=== PATIENT | female | born 1995 | race Hispanic/Latino ===

== ENCOUNTER 2022-02-17 02:37 | Emergency (ER) | payer SELFPAY ==
[2022-02-17] MEDS ORDERED: Acetaminophen 500 MG TAB ONE (03:57)
[2022-02-17] MEDS ORDERED: Oxymetazoline HCl 0.05% ( 15 ML ) ONE (04:12)
== END 2022-02-17 05:28 | disposition home or self-care (01) ==
LOC: CSHERS 02:37
DX: O99.891 Other specified diseases and conditions complicating pregnancy (principal); R51.9 Headache, unspecified; R09.81 Nasal congestion; Z3A.22 22 weeks gestation of pregnancy
CPT/HCPCS: 99283

== ENCOUNTER 2022-06-18 09:09 | Outpatient (CLI) | payer OTHER | END 2022-06-18 09:10 | disposition home or self-care (01) | LOC: CSHLAB 09:09 | PROVIDERS: ATTEND Family Medicine | DX: Z20.822 Contact with and (suspected) exposure to COVID-19 (principal) | CPT/HCPCS: 87811 ==

== ENCOUNTER 2022-06-21 09:49 | Inpatient (IN) | payer MEDICAID, OTHER, SELFPAY ==
[~2022-06-21 09:49] MED LIST: Bupivacaine 0.25% HCL 30 ML VIAL ONE; ePHEDrine Sulfate 50 MG/10 ML VIAL ONE
[2022-06-21 10:31] VITALS: BMI 25.8
[2022-06-21] MEDS ORDERED: hydrALAZINE 20 MG/ML VIAL SLOW IVP PRN ×2 (11:23→12:42)
[2022-06-21] MEDS ORDERED: Methylergonovine 0.2 MG/ML VIAL IM PRN (12:42)
[2022-06-21] MEDS ORDERED: Carboprost 250 MCG/ML AMP IM PRN (12:42)
[2022-06-21] MEDS ORDERED: Promethazine HCl 25 MG/ML VIAL IM PRN ×2 (12:42→17:57)
[2022-06-21] MEDS ORDERED: Misoprostol 200 MCG TAB PR PRN (12:42)
[2022-06-21] MEDS ORDERED: Ondansetron PF 4 MG/2 ML Vial IVP PRN ×2 (12:42→17:57)
[2022-06-21] MEDS ORDERED: Ibuprofen 800 MG TAB PO PRN (12:42)
[2022-06-21] MEDS ORDERED: Diphenoxylate HCl/Atropine Tablet PO PRN (12:42)
[2022-06-21] MEDS ORDERED: Lidocaine 1% (PF) 30 ML VIAL SC PRN (12:42)
[2022-06-21] MEDS ORDERED: Lactated Ringer's 1,000 ML IV SCH (12:45)
[2022-06-21] MEDS ORDERED: NS w/ Oxytocin 30 units 500 ML IV SCH ×2 (12:45)
[2022-06-21 13:14] LABS: Hemoglobin 12.7 g/dL (12.0-15.5); Mean Corpuscular HGB CONC 34.4 g/dL (32.0-36.0); Mean Corpuscular Hemoglobin 30.2 pg (27.0-33.0); Mean Corpuscular Volume 87.9 fl (81.6-98.3); Mean Platelet Volume 10.7 fl (7.4-10.4); Platelet Count 232 10x3/uL (150-450); RBC Distribution Width 14.8 % (11.5-14.5); White Blood Cell (WBC) Count 10.1 10x3/uL (3.5-10.5)
[2022-06-21 13:46] LABS: Hep B Surf Ag Non-Reactive S/CO (NonReactive); Syphilis Antibody Nonreactive (Nonreactive); Syphilis Antibody Index 0.08 S/CO (<1.00 Non-Reactive)
[2022-06-21 13:47] LABS: HBSAg Index 0.19 S/CO (0-0.99)
[2022-06-21] MEDS ORDERED: Fentanyl 2 mcg/Bup 0.1% Cadd 100 ML ONE (17:06)
[2022-06-21] MEDS ORDERED: Lactated Ringer's 500 ML IV PRN (17:57)
[2022-06-21] MEDS ORDERED: ePHEDrine Sulfate 50 MG/10 ML VIAL SLOW IVP PRN (17:57)
[2022-06-21] MEDS ORDERED: Naloxone HCl 0.4 mg/ml Vial IVP PRN ×2 (17:57)
[2022-06-21] MEDS ORDERED: Moisturizing Cream (Eucerin) 113 GM JAR TOP PRN (17:57)
[2022-06-21] MEDS ORDERED: diphenhydrAMINE 50 MG/ML VIAL IVP PRN (17:57)
[2022-06-21] MEDS ORDERED: Fentanyl 2 mcg/Bupivacaine 0.1% Cassette 100 ML EPIDURAL SCH (18:00)
[2022-06-21] MEDS ORDERED: Communication Order-Pharmacy FS SCH (18:00)
[2022-06-22] MEDS ORDERED: NS w/ Oxytocin 30 units 500 ML IV SCH (10:36)
[2022-06-22] MEDS ORDERED: Benzocaine-Menthol 82.5 ML CAN TOP PRN (10:36)
[2022-06-22] MEDS ORDERED: Bisacodyl 10 MG SUPP PR PRN (10:36)
[2022-06-22] MEDS ORDERED: Lanolin Ointment 7 GM TUBE TOP PRN (10:36)
[2022-06-22] MEDS ORDERED: Methylergonovine 0.2 MG/ML VIAL IM PRN (10:36)
[2022-06-22] MEDS ORDERED: hydrALAZINE 20 MG/ML VIAL SLOW IVP PRN (10:36)
[2022-06-22] MEDS ORDERED: Ondansetron PF 4 MG/2 ML Vial IVP PRN (10:36)
[2022-06-22] MEDS ORDERED: Misoprostol 200 MCG TAB VAG PRN (10:36)
[2022-06-22] MEDS ORDERED: Milk Of Magnesia 30 ML UDCUP PO PRN (10:36)
[2022-06-22] MEDS ORDERED: Boostrix 0.5 ML (Tdap) VIAL IM ONE (10:36)
[2022-06-22] MEDS: Prenatal Vitamin 1 TAB PO SCH (11:20)
[2022-06-22] MEDS: Docusate 100 MG CAP PO SCH ×2 (11:20→21:06)
[2022-06-22] MEDS: Ferrous Sulfate 325 MG TAB PO SCH ×2 (11:20→13:26)
[2022-06-22] MEDS ORDERED: Ibuprofen 800 MG TAB PO SCH (14:00)
[2022-06-22] MEDS: Acetaminophen 325 MG TAB PO PRN (16:05)
[2022-06-22] MEDS: Ibuprofen 800 MG TAB PO SCH (19:54)
[2022-06-23] MEDS: Acetaminophen 325 MG TAB PO PRN ×2 (03:18→08:40)
[2022-06-23] MEDS: Ibuprofen 800 MG TAB PO SCH ×2 (05:44→13:55)
[2022-06-23] MEDS: Ferrous Sulfate 325 MG TAB PO SCH (07:53)
[2022-06-23] MEDS: Docusate 100 MG CAP PO SCH (08:38)
[2022-06-23] MEDS: Prenatal Vitamin 1 TAB PO SCH (08:38)
[2022-06-23 11:56] VITALS: BP 109/55; TEMP 98.1
== END 2022-06-23 16:15 | disposition home or self-care (01) | DRG 807 ==
LOC: CSHLD/OP 09:49 → CSHLD 13:59 → CSHPP 06-22 11:03
PROVIDERS: ADMIT Obstetrics & Gynecology; ATTEND Obstetrics & Gynecology
PROC: 10E0XZZ Delivery of Products of Conception, External Approach (ICD-10-PCS; principal; 2022-06-22)
PROC: 0HQ9XZZ Repair Perineum Skin, External Approach (ICD-10-PCS; 2022-06-22)
PROC: 10907ZC Drainage of Amniotic Fluid, Therapeutic from Products of Conception, Via Natural or Artificial Opening (ICD-10-PCS; 2022-06-22)
PROC: 3E033VJ Introduction of Other Hormone into Peripheral Vein, Percutaneous Approach (ICD-10-PCS; 2022-06-22)
DX: O76 Abnormality in fetal heart rate and rhythm complicating labor and delivery (principal); Z37.0 Single live birth; Z3A.39 39 weeks gestation of pregnancy; Z90.49 Acquired absence of other specified parts of digestive tract; O70.0 First degree perineal laceration during delivery
CPT/HCPCS: 36415; 51702; 85027; 86780; 86850; 86900; 86901; 87340; 99285; J2590; S0020

== ENCOUNTER 2022-08-11 16:58 | Emergency (ER) | payer OTHER, SELFPAY ==
[2022-08-11 17:43] LABS: Bilirubin Neg (Negative); Blood, Urine 25 (Negative); Glucose, Urine (Dipstick) Normal (Negative); Ketone, Urine Negative (Negative); Leukocyte 500 (Negative); Nitrite Negative (Negative); Protein, Urine (Dipstick) 30 mg/dl (Neg-Trace); Urobilinogen Normal mg/dL (Less than 2); pH, Urine 6.5 (5.0-9.0)
[2022-08-11 18:00] LABS: Bacteria/HPF Rare-Few HPF (None Seen); RBC/HPF 0-3 HPF (0-3); Squamous Epithelial 0-3 HPF (0-3); WBC/HPF Greater Than 50 HPF (0-3)
[2022-08-11] MEDS ORDERED: cefTRIAXone\\ROCEPHIN 500 MG VIAL ONE (19:37)
[2022-08-11] MEDS ORDERED: Lidocaine 1% PF 5 ML VIAL ONE (19:37)
[2022-08-12 11:45] LABS: Chlamydia by PCR Not Detected (NotDetected); GC by PCR DETECTED (NotDetected)
== END 2022-08-11 23:37 | disposition home or self-care (01) ==
LOC: CSHERS 16:58
DX: N39.0 Urinary tract infection, site not specified (principal); N89.8 Other specified noninflammatory disorders of vagina
CPT/HCPCS: 81003; 81015; 87480; 87491; 87510; 87591; 87660; 96372; 99283; J0696

== ENCOUNTER 2024-06-07 06:55 | Inpatient (IN) | payer MEDICAID, OTHER ==
[2024-06-06 10:36] LABS: #Basophils 0.05 10x3/uL (0.0-0.2); #Eosinphils 0.18 10x3/uL (0.0-0.5); #Monocytes 0.64 10x3/uL (0.0-1.1); #Neutrophils 7.81 10x3/uL (1.5-8.4); %Basophils 0.5 % (0.0-2.0); %Eosinophils 1.6 % (0.0-6.0); %Monocytes 5.8 % (0.0-10.0); %Neutrophils 70.4 % (40.0-75.0); Hematocrit 37.1 % (34.9-44.5); Mean Corpuscular Hemoglobin 31.2 pg (27.0-33.0); Mean Platelet Volume 10.1 fL (7.4-10.4); Platelet Count 296 10x3/uL (150-450); RBC Distribution Width 13.7 % (11.5-14.5); Red Blood Cell (RBC) Count 4.17 10x6/uL (3.90-5.03); White Blood Cell (WBC) Count 11.1 10x3/uL (3.5-10.5)
[2024-06-06 11:20] LABS: HBsAg Index 0.16 S/CO (0-0.99); Hep B Surf Ag Non-Reactive S/CO (NonReactive)
[2024-06-06 11:21] LABS: Syphilis Antibody Nonreactive (Nonreactive); Syphilis Antibody Index 0.08 S/CO (<1.00 Non-Reactive)
[2024-06-07 07:49] VITALS: BMI 22.6
[2024-06-07] MEDS ORDERED: Bicitra 30 ML UDCUP PO PRN (08:11)
[2024-06-07] MEDS ORDERED: Ondansetron PF 4 MG/2 ML Vial IVP PRN ×4 (08:11→18:37)
[2024-06-07] MEDS ORDERED: Methylergonovine 0.2 MG/ML VIAL IM PRN ×2 (08:11→18:37)
[2024-06-07] MEDS ORDERED: Promethazine HCl 25 MG/ML VIAL IM PRN ×3 (08:11→18:37)
[2024-06-07] MEDS ORDERED: Carboprost 250 MCG/ML AMP IM PRN (08:11)
[2024-06-07] MEDS ORDERED: Misoprostol 200 MCG TAB PR PRN ×2 (08:11→18:37)
[2024-06-07] MEDS ORDERED: Diphenoxylate HCl/Atropine Tablet PO PRN (08:11)
[2024-06-07] MEDS ORDERED: hydrALAZINE 20 MG/ML VIAL SLOW IVP PRN ×2 (08:11→18:37)
[2024-06-07] MEDS ORDERED: Tranexamic Acid 1,000 MG/10 ML VIAL IVP PRN (08:11)
[2024-06-07] MEDS ORDERED: CEFAZOLIN 2 GM in Sodium Chloride 0.9% 100 ML IVPB SCH (08:15)
[2024-06-07] MEDS: Famotidine/PF 20 mg/2ml Vial SLOW IVP PRN (09:12)
[2024-06-07] MEDS ORDERED: HYDROmorphone 0.5 MG/0.5 ML SYRINGE SLOW IVP PRN (12:25)
[2024-06-07] MEDS ORDERED: Naloxone HCl 0.4 mg/ml Vial IV PRN (12:25)
[2024-06-07] MEDS ORDERED: diphenhydrAMINE 50 MG/ML VIAL IVP PRN (12:25)
[2024-06-07] MEDS ORDERED: Moisturizing Cream (Eucerin) 113 GM JAR TOP PRN (12:25)
[2024-06-07] MEDS ORDERED: Naloxone HCl 0.4 mg/ml Vial IVP PRN ×2 (12:25)
[2024-06-07] MEDS ORDERED: Meperidine HCl/PF 25 MG (1 mL) VIAL SLOW IVP PRN (12:25)
[2024-06-07] MEDS ORDERED: fentaNYL 50 mcg/mL 1 mL Vial SLOW IVP PRN (12:25)
[2024-06-07] MEDS ORDERED: Communication Order-Pharmacy FS SCH (12:30)
[2024-06-07] MEDS: Oxytocin 30 units/NS 500 ML 500 ML IV SCH (14:22)
[2024-06-07] MEDS ORDERED: Lanolin Ointment 7 GM TUBE TOP PRN (18:37)
[2024-06-07] MEDS ORDERED: diphenhydrAMINE 25 MG CAP PO PRN (18:37)
[2024-06-07] MEDS ORDERED: Oxytocin 30 units/NS 500 ML 500 ML IV SCH (18:37)
[2024-06-07] MEDS ORDERED: Boostrix 0.5 ML (Tdap) VIAL (>/=7 yrs of age) IM ONE (18:37)
[2024-06-07] MEDS: Morphine PF 10 MG/10 ML VIAL ONE (18:55)
[2024-06-07] MEDS: Ondansetron PF 4 MG/2 ML Vial ONE (18:55)
[2024-06-07] MEDS: Erythromycin Base 0.5% Oint 1 GM TUBE ONE (18:56)
[2024-06-07] MEDS: Dexamethasone 10 MG/ML VIAL ONE (18:56)
[2024-06-07] MEDS: Phytonadione Neonatal 1 MG/0.5 ML AMP ONE (18:56)
[2024-06-07] MEDS: Oxytocin 10 UNITS/ML VIAL ONE (18:56)
[2024-06-07] MEDS: Ketorolac Tromethamine 30 MG (1 mL) VIAL ONE (18:57)
[2024-06-07] MEDS: Ferrous Sulfate 325 MG TAB PO SCH (21:00)
[2024-06-07] MEDS: Docusate 100 MG CAP PO SCH (22:37)
[2024-06-08 04:26] LABS: Hematocrit 28.3 % (34.9-44.5); Hemoglobin 9.7 g/dL (12.0-15.5); Mean Corpuscular HGB CONC 34.3 g/dL (32.0-36.0); Mean Corpuscular Hemoglobin 30.7 pg (27.0-33.0); Mean Corpuscular Volume 89.6 fL (81.6-98.3); Platelet Count 257 10x3/uL (150-450); RBC Distribution Width 13.4 % (11.5-14.5); Red Blood Cell (RBC) Count 3.16 10x6/uL (3.90-5.03); White Blood Cell (WBC) Count 13.5 10x3/uL (3.5-10.5)
[2024-06-08] MEDS: Ketorolac Tromethamine 30 MG (1 mL) VIAL IVP PRN (06:20)
[2024-06-08] MEDS: Acetaminophen 325 MG TAB PO PRN (08:29)
[2024-06-08] MEDS: Prenatal Vitamin 1 TAB PO SCH (08:29)
[2024-06-08] MEDS: Simethicone Chewable 80 MG TAB PO PRN (10:56)
[2024-06-08] MEDS: Ibuprofen 800 MG TAB PO SCH (21:35)
[2024-06-09 06:13] LABS: Hemoglobin 10.2 g/dL (12.0-15.5)
[2024-06-09] MEDS: HYDROcodone/Acetaminophen 5/325 mg Tablet PO PRN (12:22)
[2024-06-09 13:32] VITALS: BP 97/58; TEMP 98.5
== END 2024-06-09 16:50 | disposition home or self-care (01) | DRG 785 ==
LOC: CSHLD 06:55 → CSHPP 14:30
PROVIDERS: ADMIT Family Medicine; ATTEND Family Medicine
PROC: 10D00Z1 Extraction of Products of Conception, Low, Open Approach (ICD-10-PCS; principal; 2024-06-07)
PROC: 0UT70ZZ Resection of Bilateral Fallopian Tubes, Open Approach (ICD-10-PCS; 2024-06-07)
DX: O44.23 Partial placenta previa NOS or without hemorrhage, third trimester (principal); Z3A.37 37 weeks gestation of pregnancy; Z37.0 Single live birth; O32.1XX0 Maternal care for breech presentation, not applicable or unspecified; O99.02 Anemia complicating childbirth; D50.0 Iron deficiency anemia secondary to blood loss (chronic)
CPT/HCPCS: 36415; 51702; 85014; 85018; 85025; 85027; 86780; 86850; 86900; 86901; 87340; 88302; J1100; J1885; J2274; J2405; J2590; S0028